=== PATIENT | male | born 1980 | race Caucasian/White ===

== ENCOUNTER 2020-05-05 10:23 | Emergency (ER) | payer OTHER ==
[~2020-05-05] VITALS: Ht 177.8 cm; Wt 99.3 kg
[2020-05-05 10:36] VITALS: Ht 177.8 cm; Wt 99.3 kg
[2020-05-05 11:38] VITALS: BP 140/98
== END 2020-05-05 11:38 | disposition home or self-care (01) ==
LOC: ED 10:23
DX: H53.2 Diplopia (principal)